=== PATIENT | male | born 1980 | race Caucasian/White ===

== ENCOUNTER 2021-11-13 16:14 | Emergency (ER) | payer OTHER ==
[~2021-11-13] VITALS: Ht 190.5 cm; Wt 77.1 kg
[2021-11-13] MEDS ORDERED: Buspirone HCl15 MG PO (16:28)
[2021-11-13] MEDS ORDERED: TRAZ50 PO (16:29)
[2021-11-13] MEDS ORDERED: GABA100 PO (16:29)
[2021-11-13] MEDS ORDERED: Hair, Skin & N1 EACH PO (16:29)
[2021-11-13] MEDS ORDERED: CHLO25 PO (16:31)
== END 2021-11-13 17:42 | disposition home or self-care (01) ==
LOC: ER 16:14
DX: F10.139 Alcohol abuse with withdrawal, unspecified (principal)
CPT/HCPCS: 99285; A9270

== ENCOUNTER 2021-11-15 13:24 | Emergency (ER) | payer OTHER ==
[~2021-11-15] VITALS: Ht 193 cm; Wt 77.1 kg
[~2021-11-15 13:24] MED LIST: Buspirone HCl15 MG PO; CHLO25 PO; GABA100 PO; Hair, Skin & N1 EACH PO; TRAZ50 PO
[2021-11-15 14:08] LABS: EOSINOPHILS PERCENT AUTO 1 % (0-6)
[2021-11-15 14:23] LABS: BASOPHILS ABSOLUTE AUTO 0.05 K/mm3 (0.00-0.23); BASOPHILS PERCENT AUTO 1 % (0-2); EOSINOPHILS ABSOLUTE AUTO 0.08 K/mm3 (0.00-0.68); Hematocrit 44.8 % (37.0-53.0); Hemoglobin 15.5 g/dL (13.5-17.5); IMMATURE GRAN PERCENT AUTO 2 % (0-1); LYMPHOCYTES ABSOLUTE AUTO 0.72 K/mm3 (0.84-5.20); LYMPHOCYTES PERCENT AUTO 12 % (21-46); MONOCYTES ABSOLUTE AUTO 0.97 K/mm3 (0.16-1.47); MONOCYTES PERCENT AUTO 16 % (4-13); Mean Corpuscular HGB Conc 34.6 g/dL (31.5-36.5); Mean Corpuscular Volume 101 fL (80-100); NEUTROPHILS ABSOLUTE AUTO 4.01 K/mm3 (1.96-9.15); NEUTROPHILS PERCENT AUTO 68 % (41-73); NRBC ABSOLUTE 0.02 K/mm3 (0.00-0.02); NRBC Auto 0.3 /100 WBC (0.0-0.2); RDW Coefficient Variation 12.5 % (11.7-14.2); RDW Standard Deviation 46.2 fL (35.1-46.3); Red Blood Cell Count 4.43 M/mm3 (4.30-5.90); White Blood Cell Count 5.93 K/mm3 (4.00-11.30)
[2021-11-15 14:26] LABS: Ethanol (Alcohol), Blood, Med <3 mg/dL
[2021-11-15 14:31] LABS: Alanine Aminotransfer (ALT/SGP 127 U/L (12-78); Albumin, Blood 3.7 g/dL (3.4-5.0); Albumin/Globulin Ratio 0.9 (0.8-1.8); Alk Phos 70 U/L (50-136); Anion Gap 7 mmol/L (6-16); Aspartate Aminotrans (AST/SGOT 141 U/L (12-37); Bilirubin, Total 1.1 mg/dL (0.1-1.0); Blood Urea Nitrogen 15 mg/dL (8-24); Bun/Creatinine Ratio 22.2 (12.0-20.0); CO2, Blood 21 mmol/L (21-32); Calcium, Blood 9.4 mg/dL (8.5-10.1); Chloride, Blood 104 mmol/L (98-108); Creatinine, Blood 0.68 mg/dL (0.60-1.20); Globulin, Blood 4.3 g/dL (2.2-4.0); Glomerular Filtration Rate >60 (60-); Glucose, Blood 152 mg/dL (70-99); Potassium, Blood 5.9 mmol/L (3.5-5.5); Sodium, Blood 132 mmol/L (136-145)
[2021-11-15 15:24] LABS: Platelet Count 89 K/mm3 (150-400)
[2021-11-15 15:25] LABS: Mean Platelet Volume 12.2 fL (9.1-12.4)
== END 2021-11-15 14:42 | disposition left against medical advice (07) ==
LOC: ER 13:24
PROVIDERS: Emergency Medicine
DX: R41.82 Altered mental status, unspecified (principal); F17.200 Nicotine dependence, unspecified, uncomplicated
CPT/HCPCS: 36415; 80053; 85025; 96374; 96375; 99285-25; G0480; J1200; J1630; J2060; J2560

== ENCOUNTER 2021-11-15 15:48 | Inpatient (IN) | payer OTHER ==
[~2021-11-15] VITALS: Ht 198.1 cm; Wt 71.3 kg
[2021-11-15 20:24] LABS: Influenza A, PCR NEGATIVE (NEGATIVE); Influenza B, PCR NEGATIVE (NEGATIVE); Resp Syncytial Virus, PCR NEGATIVE (NEGATIVE); SARS-Cov-2 (COVID-19) PCR, MMC NEGATIVE (NEGATIVE)
--- NOTE | 2021-11-15 22:00 | NUR ---
Assumed care. Report received from ENTERTAINMENT [employer]ICIAN. Pt arrived from ER, following commands but confused. TATS restraints removed upon arrival. Pt on room air, stable vital signs. Pt cooperative with care. Will continue to monitor.
[2021-11-16 03:39] LABS: BASOPHILS ABSOLUTE AUTO 0.03 K/mm3 (0.00-0.23); BASOPHILS PERCENT AUTO 1 % (0-2); EOSINOPHILS ABSOLUTE AUTO 0.17 K/mm3 (0.00-0.68); EOSINOPHILS PERCENT AUTO 4 % (0-6); Hematocrit 44.7 % (37.0-53.0); Hemoglobin 15.1 g/dL (13.5-17.5); IMMATURE GRAN ABSOLUTE AUTO 0.01 K/mm3 (0.00-0.10); IMMATURE GRAN PERCENT AUTO 0 % (0-1); LYMPHOCYTES ABSOLUTE AUTO 0.94 K/mm3 (0.84-5.20); LYMPHOCYTES PERCENT AUTO 22 % (21-46); MONOCYTES ABSOLUTE AUTO 0.93 K/mm3 (0.16-1.47); MONOCYTES PERCENT AUTO 22 % (4-13); Mean Corpuscular HGB 34.2 pg (26.0-34.0); Mean Corpuscular HGB Conc 33.8 g/dL (31.5-36.5); Mean Corpuscular Volume 101 fL (80-100); Mean Platelet Volume 11.4 fL (9.1-12.4); NEUTROPHILS ABSOLUTE AUTO 2.16 K/mm3 (1.96-9.15); NEUTROPHILS PERCENT AUTO 51 % (41-73); Platelet Count 60 K/mm3 (150-400); RDW Coefficient Variation 11.9 % (11.7-14.2); RDW Standard Deviation 44.7 fL (35.1-46.3); Red Blood Cell Count 4.41 M/mm3 (4.30-5.90); White Blood Cell Count 4.24 K/mm3 (4.00-11.30)
[2021-11-16 03:56] LABS: Alanine Aminotransfer (ALT/SGP 120 U/L (12-78); Albumin, Blood 3.8 g/dL (3.4-5.0); Albumin/Globulin Ratio 1.1 (0.8-1.8); Alk Phos 65 U/L (50-136); Anion Gap 3 mmol/L (6-16); Aspartate Aminotrans (AST/SGOT 103 U/L (12-37); Blood Urea Nitrogen 11 mg/dL (8-24); Bun/Creatinine Ratio 14.1 (12.0-20.0); CO2, Blood 30 mmol/L (21-32); Calcium, Blood 9.4 mg/dL (8.5-10.1); Chloride, Blood 104 mmol/L (98-108); Creatinine, Blood 0.78 mg/dL (0.60-1.20); Globulin, Blood 3.5 g/dL (2.2-4.0); Glomerular Filtration Rate >60 (60-); Glucose, Blood 100 mg/dL (70-99); Potassium, Blood 4.3 mmol/L (3.5-5.5); Sodium, Blood 137 mmol/L (136-145); Total Protein, Blood 7.3 g/dL (6.4-8.2)
--- NOTE | 2021-11-16 06:41 | NUR ---
Shift summary. Pt rested quietly in bed throughout shift. On room air, stable vital signs. Updated pt's on transfer to ICU, she is planning on coming in today to see him and would like an update from the physician this am. See shift assessment for further details. Will continue to monitor and report off to dayshift RN.
--- NOTE | 2021-11-16 09:49 | NUR ---
ASSUMED CARE @0700 PATIENT ALERT AND ORIENTED X4. ANSWERING APPROPRIETLY. DENIES N/V, NO VISIBLE TREMORS EVEN WITH ARMS EXTENDED, DENIES HEADACHE AND HALLUCINATIONS. CIWA 0. 02 SATS >95% ON RA. HR SB-SR @50s-60s. BP STABLE. DENIES CP/PRESSURE. USES URINAL. ABLE TO MOVE SELF IN BED. UPDATED OVER THE PHONE, SHE PLANS TO COME IN AT 2. ADVANCED DIET TO REGULAR AND PATIENT CHANGED STATUS TO MED NO TELE PER DR. LIMA. CALLED [facility] AND THEY CONFIRMED THEY WOULD BE DISCHARGING HIM TODAY AND THAT HE DECLINED THE RESIDENTIAL PROGRAM. SEE SHIFT ASSESSMENT FOR MORE DETAIL.
--- NOTE | 2021-11-16 12:08 | NUR ---
PAPERWORK SIGNED, IV REMOVED AND PATIENT DISCHARGED AND LEAVING ROOM @1208 WITH .
== END 2021-11-16 12:36 | disposition home or self-care (01) | DRG 897 ==
LOC: ER 15:48 → EOR 15:49 → ER 15:49 → ICUW 15:49 → ICUE 21:37
PROVIDERS: Internal Medicine; ADMIT Emergency Medicine
DX: F10.131 Alcohol abuse with withdrawal delirium (principal); D69.6 Thrombocytopenia, unspecified; F41.9 Anxiety disorder, unspecified; Z20.822 Contact with and (suspected) exposure to COVID-19; F32.A Depression, unspecified; G62.9 Polyneuropathy, unspecified; F17.200 Nicotine dependence, unspecified, uncomplicated; F17.210 Nicotine dependence, cigarettes, uncomplicated; Z79.899 Other long term (current) drug therapy; Z23 Encounter for immunization
CPT/HCPCS: 0241U; 36415; 80053; 85025; 86592; 90686; 96372; 99285-25; A9270; J1650; J2060; J3411; J3475; J7042